=== PATIENT | female | born 1970 | race Caucasian/White ===

== ENCOUNTER 2018-04-15 08:06 | Emergency (ER) | payer BC ==
[2018-04-15 08:14] VITALS: BMI 23.3
[2018-04-15] MEDS ORDERED: LR 1000 ML IV 1,000 ML IV ONE (08:31)
[2018-04-15 08:45] LABS: BILIRUBIN,URINE NEGATIVE (NEGATIVE); BLOOD/HEMOGLOBIN,URINE NEGATIVE (NEGATIVE); GLUCOSE, URINE NEGATIVE (NEGATIVE); KETONES,URINE NEGATIVE (NEGATIVE); LEUKOCYTE ESTERASE ,URINE NEGATIVE (NEGATIVE); NITRITES,URINE NEGATIVE (NEGATIVE); PROTEIN,URINE NEGATIVE (NEGATIVE); UROBILINOGEN,URINE NORMAL (NORMAL)
[2018-04-15 08:47] LABS: APPEARANCE,URINE CLEAR (CLEAR); COLOR,URINE YELLOW (YELLOW)
--- NOTE | 2018-04-15 09:00 | DR.GENAD ---
HPI - PCP Primary Care Physician: Dr. Cardenas in [place], [place] - Complaint/Symptoms Chief Complaint Doctors Comments: I agree with statement as written. Chief Complaint:: Around 7pm last night pt started having chills and fever associated with "pain over both kidneys". Woke up this morning and pain and chills were still here and she feels "very fatigued". Self Treatment fo Chief Complaint: Tylenol around 2 AM - Source History Provided: Patient - Mode of Arrival Mode of Arrival: Ambulatory - Timing Onset of Chief Complaint: 04/14/18 PMH - PMH Past Medical History: No Past Surgical History: Yes Past Surgical History Comment: hysterectomy - Family History History of Family Medical Conditions: No - Social History Does patient currently use any type of tobacco product: No Have you used tobacco products in the last 12 months: No Type of Tobacco Use: None Does any household member use tobacco: No Alcohol Use: None Do you use any recreational Drugs:: No Lives With: Alone Lives Where: Home - infectious screening In the last 2 months have you had wt loss of >10#?: NO Have you had fever, night sweats or hemotysis?: No Have you traveled outside the country in the last 6 months?: No Isolation: Standard ROS - Review of Systems Eyes: No Symptoms Reported ENTM: No Symptoms Reported Respiratoy: No Symptoms Reported Cardiovascular: No Symptoms Reported Gastrointestinal/Abdominal: No Symptoms Reported Genitourinary: No Symptoms Reported Neurological: No Symptoms Reported Musculoskeletal: No Symptoms Reported Integumentary: No Symptoms Reported Hematologic/Lymphatic: No Symptoms Reported Endocrine: No Symptoms Reported Psychiatric: No Symptoms Reported All Other Systems: Reviewed and Negative PE - Vital Signs Vitals: Temperature 97.2 F Pulse Rate [Left Radial] 75 Pulse Rate 117 Respiratory Rate 18 Blood Pressure [Left Arm] 116/59 Blood Pressure 132/69 O2 Sat by Pulse Oximetry 99 - General Limitations: No Limitations General Appearance: Alert, In No Apparent Distress - Head Head Exam: Normal Inspection, Atraumatic - ENT ENT Exam: Normal Exam External Ear Exam: Normal External Inspection TM/Canal Exam: Bilateral Normal Nose Exam: Normal Nose Exam Mouth Exam: Normal Inspection Throat Exam: Normal Inspection - Neck Neck Exam: Normal Inspection - Chest Chest Inspection: Normal Inspection - Respiratory Respiratory Exam: Normal Lung Sounds Bilat Respiratory Exam: Bilateral Clear to Auscultation - Cardiovascular Cardiovascular Exam: Regular Rate, Normal Rhythm - Abdominal Exam Abdominal Exam: Normal Inspection, Normal Bowel Sounds Abdominal Tenderness: negative: RUQ, RLQ, LUQ, LLQ, Epigastrium, Suprapubic, Diffuse, Mild, Moderate, Severe, Other - Back Back Exam: Normal Inspection, Tenderness (left flank) - Neurologic Neurological Exam: Alert, Oriented X3 - Psychiatric Psychiatric Exam: Normal Affect, Normal Mood - Skin Skin Exam: Warm, Dry, Intact, Normal Color Course - Reevaluation 1st: Improved - Education/Counseling Educated On: Treatment, Diagnosis, Prognosis, Needs for Follow Up ROR - Labs Reviewed Result Diagrams: 04/15/18 08:50 04/15/18 09:09 Laboratory: WBC 7.6 X10^3/uL (3.6-10.0) 04/15/18 08:50 RBC 4.45 X10^6/uL (3.5-5.4) 04/15/18 08:50 Hgb 13.7 g/dL (12.0-16.0) 04/15/18 08:50 Hct 39.9 % (36.0-47.0) 04/15/18 08:50 MCV 89.6 fL (80.0-100.0) 04/15/18 08:50 MCH 30.8 pg (27.0-34.0) 04/15/18 08:50 MCHC 34.3 g/dL (33.0-35.0) 04/15/18 08:50 RDW 13.4 % (11.6-16.5) 04/15/18 08:50 Plt Count 252 X10^3/uL (150.0-450.0) 04/15/18 08:50 MPV 11.0 fL (7.4-11.0) 04/15/18 08:50 Neut % (Auto) 85.8 % (42.0-75.0) H 04/15/18 08:50 Lymph % (Auto) 9.0 % (21.0-51.0) L 04/15/18 08:50 [place] % (Auto) 4.4 % (0.0-13.0) 04/15/18 08:50 Eos % (Auto) 0.3 % (0.9-2.9) L 04/15/18 08:50 Baso % (Auto) 0.5 % (0.2-1.0) 04/15/18 08:50 Neut # (Auto) 6.5 x10^3/uL (2.2-4.8) H 04/15/18 08:50 Lymph # (Auto) 0.7 X10^3/uL (1.3-2.9) L 04/15/18 08:50 [place] # (Auto) 0.3 x10^3/uL (0.3-0.8) 04/15/18 08:50 Eos # (Auto) 0.0 x10^3/uL (0.0-0.2) 04/15/18 08:50 Baso # (Auto) 0.0 X10^3/uL (0.0-0.1) 04/15/18 08:50 Absolute Nucleated RBC 0.0 /100WBC 04/15/18 08:50 Sodium 138 mmol/L (136-145) 04/15/18 09:09 Corrected Sodium TNP 04/15/18 09:09 Potassium 3.8 mmol/L (3.5-5.1) 04/15/18 09:09 Chloride 104 mmol/L (98-107) 04/15/18 09:09 Carbon Dioxide 26.7 mmol/L (21-32) 04/15/18 09:09 BUN 9 mg/dL (7-18) 04/15/18 09:09 Creatinine 0.95 mg/dL (0.55-1.02) 04/15/18 09:09 Est GFR (MDRD) Af Amer > 60 (>60) 04/15/18 09:09 Est GFR (MDRD) Non-Af > 60 (>60) 04/15/18 09:09 Glucose 110 mg/dL (65-99) H 04/15/18 09:09 Calcium 7.7 mg/dL (8.5-10.1) L 04/15/18 09:09 Corrected Calcium TNP 04/15/18 09:09 Total Bilirubin 0.30 mg/dL (0.2-1.0) 04/15/18 09:09 AST 6 Units/L (15-37) L 04/15/18 09:09 ALT 23 Units/L (12-78) 04/15/18 09:09 Alkaline Phosphatase 63 Units/L (46-116) 04/15/18 09:09 C-Reactive Protein 14.20 mg/L (0-3.0) H 04/15/18 09:09 Total Protein 7.2 g/dL (6.4-8.2) 04/15/18 09:09 Albumin 3.6 g/dL (3.4-5.0) 04/15/18 09:09 Globulin 3.6 g/dL (2.5-4.5) 04/15/18 09:09 Albumin/Globulin Ratio 1.0 Ratio (1.1-2.1) L 04/15/18 09:09 Specimen Type Clean catch urine 04/15/18 08:33 Urine Color Yellow (YELLOW) 04/15/18 08:33 Urine Appearance Clear (CLEAR) 04/15/18 08:33 Urine pH 6.0 (5.0 - 8.0) 04/15/18 08:33 Ur Specific [place] 1.010 (1.000-1.030) 04/15/18 08:33 Urine Protein Negative (NEGATIVE) 04/15/18 08:33 Urine Glucose (UA) Negative (NEGATIVE) 04/15/18 08:33 Urine Ketones Negative (NEGATIVE) 04/15/18 08:33 Urine Occult Blood Negative (NEGATIVE) 04/15/18 08:33 Urine Nitrite Negative (NEGATIVE) 04/15/18 08:33 Urine Bilirubin Negative (NEGATIVE) 04/15/18 08:33 Urine Urobilinogen Normal (NORMAL) 04/15/18 08:33 Ur Leukocyte Esterase Negative (NEGATIVE) 04/15/18 08:33 - XRAY XRAY Interpreted by: Radiologist (Chest:No radiographic evidence of acute cardiopulmonqry disease. CT Abd/Pel: There are patchy nodular airspace opacities within the left lower lobe. The remainder of the visualized lung bases are clear. No agrgressive osseous lesions are identified. There is a punctate nonobstructing stone within the upper pole of the right kidney. Both kidneys otherwise enhance symmetrically without hydronephrosis. Impression: No acute inflammatory process identified within the abdomen or pelvis to explain partient's symtoms. Nonobstructing right nephrolithiasis. Patchy nodular airspace opacities within the leeft lower lobe, suspicious for developing neumonia. Clinical correlation and radiographic follow up to complete resolution recommended.) - Diagnosis Discharge Problem: Early LLL Pneumonia - Discharge Plan Condition: Stable - Follow ups/Referrals Follow ups/Referrals: [facility],None [Primary Care Provider] - 3 days - Instructions
[2018-04-15 09:01] LABS: BASOPHILS % (AUTO) 0.5 % (0.2-1.0); EOSINOPHILS % (AUTO) 0.3 % (0.9-2.9); HEMATOCRIT 39.9 % (36.0-47.0); HEMOGLOBIN 13.7 g/dL (12.0-16.0); LYMPHOCYTES # (AUTO) 0.7 X10^3/uL (1.3-2.9); MEAN CORPUSCULAR HEMOGLOBIN 30.8 pg (27.0-34.0); MEAN CORPUSCULAR HGB CONC 34.3 g/dL (33.0-35.0); MEAN CORPUSCULAR VOLUME 89.6 fL (80.0-100.0); MONOCYTES # (AUTO) 0.3 x10^3/uL (0.3-0.8); MONOCYTES % (AUTO) 4.4 % (0.0-13.0); NEUTROPHILS # (AUTO) 6.5 x10^3/uL (2.2-4.8); NEUTROPHILS % (AUTO) 85.8 % (42.0-75.0); PLATELET COUNT 252 X10^3/uL (150.0-450.0); RED BLOOD COUNT 4.45 X10^6/uL (3.5-5.4); RED CELL DISTRIBUTION WIDTH 13.4 % (11.6-16.5); WHITE BLOOD COUNT 7.6 X10^3/uL (3.6-10.0)
[2018-04-15] MEDS ORDERED: TORADOL 30 MG VIAL IVP ONE (09:03)
[2018-04-15] MEDS ORDERED: TORADOL 30 MG VIAL ONE (09:04)
--- NOTE | 2018-04-15 09:18 | RAD ---
HISTORY: Left-sided chest pain starting the evening before Study: AP portable chest Comparison: None Findings: The lungs are clear. The heart size is normal. No acute bony abnormalities are identified. No evid ence of pneumothorax is noted. IMPRESSION: 1. No radiographic evidence of acute cardiopulmonary disease. Reported By:
[2018-04-15 09:27] LABS: ALANINE AMINOTRANSFERASE 23 Units/L (12-78); ALBUMIN 3.6 g/dL (3.4-5.0); ALKALINE PHOSPHATASE 63 Units/L (46-116); ASPARTATE AMINO TRANSFERASE 6 Units/L (15-37); BLOOD UREA NITROGEN 9 mg/dL (7-18); CALCIUM 7.7 mg/dL (8.5-10.1); CARBON DIOXIDE 26.7 mmol/L (21-32); CHLORIDE 104 mmol/L (98-107); CREATININE 0.95 mg/dL (0.55-1.02); SODIUM 138 mmol/L (136-145); TOTAL PROTEIN 7.2 g/dL (6.4-8.2); eGFR BLACK RACES > 60 (>60); eGFR NON BLACK RACES > 60 (>60)
[2018-04-15] MEDS ORDERED: MORPHINE SULFATE INJ 4 MG ONE (09:37)
[2018-04-15] MEDS ORDERED: MORPHINE SULFATE INJ 4 MG IVP ONE (09:37)
[2018-04-15 09:43] VITALS: BP 116/59
--- NOTE | 2018-04-15 11:10 | CT ---
CT abdomen and pelvis with contrast Indication: Chills, fever and pain over both kidneys Technique: Helical CT images of the abdomen and pelvis were obtained with IV contrast. Reformatted im ages in the coronal and sagittal planes were also generated for review. Comparison: None Findings: There are patchy nodular airspace opacities within the left lower lobe. The remainder of th e visualized lung bases are clear. No aggressive osseous lesions are identified. The liver, gallbladder, spleen, pancreas and adrenals are unremarkable. There is a punctate nonobstru cting stone within the upper pole of the right kidney. Both kidneys otherwise enhance symmetrically w ithout hydronephrosis. There is no bowel inflammation or obstruction. The appendix is normal. The IVC, abdominal aorta and u rinary bladder are normal. The uterus is surgically absent. No free air, significant free fluid or ly mphadenopathy is identified. Impression: No acute inflammatory process identified within the abdomen or pelvis to explain patient's symptoms. Nonobstructing right nephrolithiasis. Patchy nodular airspace opacities within the left lower lobe, suspicious for developing pneumonia. Cl inical correlation and radiographic follow-up to complete resolution recommended. Reported By:
== END 2018-04-15 12:00 | disposition home or self-care (01) ==
LOC: ER 08:22
DX: N20.0 Calculus of kidney (principal)
CPT/HCPCS: 36415; 71045; 74177; 80053; 81003; 85025; 86140; 96365; 96374; 96375; 99283; A4222; J1885; J2270